=== PATIENT | male | born 1960 | race African-American/Black ===

== ENCOUNTER 2020-05-03 15:08 | Emergency (ER) | payer MEDICARE, OTHER ==
[~2020-05-03] VITALS: Ht 188 cm; Wt 130.0 kg
[~2020-05-03 15:08] MED LIST: AMLO1TAB64; ASPI-1079 PO; ATOR20TA65 PO; HYDR-4134 PO; LISI10TA5 PO; POTA20TA82 PO; SPIR25TA6
[2020-05-03 17:17] VITALS: BP 128/80
[2020-05-03] MEDS ORDERED: P50 MT (17:28)
[2020-05-03] MEDS ORDERED: DIPH25TA62 MT (17:29)
[2020-05-03] MEDS ORDERED: FAMO20TA8 PO (17:29)
[2020-05-03] MEDS ORDERED: PREDNISONE 20MG TABLET PO ONE (17:30)
== END 2020-05-03 17:40 | disposition home or self-care (01) ==
LOC: ER 15:08
DX: T78.40XA Allergy, unspecified, initial encounter (principal); I11.0 Hypertensive heart disease with heart failure; I50.9 Heart failure, unspecified; E11.9 Type 2 diabetes mellitus without complications; E78.00 Pure hypercholesterolemia, unspecified; G47.30 Sleep apnea, unspecified; E66.9 Obesity, unspecified; Z68.36 Body mass index [BMI] 36.0-36.9, adult; Z95.0 Presence of cardiac pacemaker; Z79.82 Long term (current) use of aspirin; X58.XXXA Exposure to other specified factors, initial encounter
CPT/HCPCS: 82962; 99283; J7512

== ENCOUNTER 2024-07-19 08:51 | Emergency (ER) | payer MEDICARE ==
[~2024-07-19] VITALS: Ht 188 cm; Wt 109.0 kg
[~2024-07-19 08:51] MED LIST changes: -AMLO1TAB64; -ASPI-1079 PO; +ASPI-1406 PO; +CARV25TA47 PO; +FAMO20TA8 PO; +FURO-151 PO; -HYDR-4134 PO; +HYDR25TA78 PO; -LISI10TA5 PO; +METF-414 PO; +POTA-205 PO; -POTA20TA82 PO; +SACU1TAB7 PO; -SPIR25TA6; +SPIR25TA6 PO; +TERB250T88 PO
[2024-07-19 08:59] VITALS: O2SAT 100
[2024-07-19] MEDS: DIPHENHYDRAMINE 25MG CAPSULE PO ONE (09:29)
[2024-07-19] MEDS: FAMOTIDINE 20MG TABLET PO ONE (09:30)
[2024-07-19] MEDS: PREDNISONE 20MG TABLET PO ONE (09:30)
[2024-07-19] MEDS ORDERED: SULF1TAB48 MT (10:52)
[2024-07-19] MEDS ORDERED: AMOX1TAB16 MT (10:52)
[2024-07-19 11:15] VITALS: BP 125/83; PULSE 89; RESP 18; TEMP 37; O2SAT 99
== END 2024-07-19 11:20 | disposition home or self-care (01) ==
LOC: ER 08:51
DX: K13.0 Diseases of lips (principal); L02.01 Cutaneous abscess of face; E11.9 Type 2 diabetes mellitus without complications; I10 Essential (primary) hypertension; Z95.810 Presence of automatic (implantable) cardiac defibrillator; Z79.899 Other long term (current) drug therapy; Z79.84 Long term (current) use of oral hypoglycemic drugs
CPT/HCPCS: 99284; 70486; Q0163; J7512